=== PATIENT | male | born 1960 | race African-American/Black ===

== ENCOUNTER 2019-12-06 07:18 | Inpatient (IN) | payer OTHER ==
[~2019-12-06] VITALS: Ht 172.7 cm; Wt 86.2 kg
[2019-12-06] MEDS ORDERED: SODIUM CHLORIDE 0.9% 1,000 ML IV ONE (08:17)
[2019-12-06] MEDS ORDERED: SODIUM CHLORIDE 0.9% 1000ML BAG (SEPSIS BOLUS) IV ONE (08:30)
[2019-12-06] MEDS ORDERED: ACETAMINOPHEN 325MG TABLET PO ONE (08:30)
[2019-12-06 09:18] LABS: BASOPHILS % 0.6 % (0.0-2.0); HEMOGLOBIN. 18.2 g/dL (14.0-18.0); LYMPHOCYTES % 12.2 % (20.0-50.0); MEAN CORPUSCULAR HEMOGLOBIN 29.3 pg (28.0-32.0); MEAN CORPUSCULAR VOLUME 85.5 fL (80.0-94.0); MEAN PLATELET VOLUME 8.7 fl (7.4-10.4); MONOCYTES % 3.6 % (2.0-8.0); NEUTROPHILS % 83.6 % (40.0-76.0); PLATELET 248 x1000/uL (130-400); RED BLOOD CELL COUNT 6.19 mill/uL (4.7-6.1); RED CELL DISTRIBUTION WIDTH 13.8 % (11.6-14.6)
[2019-12-06 09:27] LABS: CHLORIDE 98 mEq/L (98-107)
[2019-12-06 09:34] LABS: INR 1.1; PARTIAL THROMBOPLASTIN TIME 34.1 sec (23.4-31.0); PROTHROMBIN TIME 11.7 sec (9.6-11.0)
[2019-12-06] MEDS ORDERED: AZITHROMYCIN 500 MG in DEXT 5% WATER 250 ML IV STA (10:23)
[2019-12-06] MEDS ORDERED: CEFTRIAXONE 1 G PREMIX 50 ML IV ONE (10:30)
[2019-12-06 11:01] LABS: CLARITY URINE CLOUDY (CLEAR); COLOR URINE DARK YELLOW (YELLOW); KETONES URINE 1+ (NEGATIVE); LEUKOCYTE ESTERASE URINE NEGATIVE (NEGATIVE); NITRITE URINE NEGATIVE (NEGATIVE); OCCULT BLOOD URINE 3+ (NEGATIVE); PH URINE 5.5 (4.5-8.0); PROTEIN URINE 4+ (NEGATIVE); SPECIFIC GRAVITY URINE 1.034 (1.005-1.030)
[2019-12-06] MEDS ORDERED: AZITHROMYCIN 500 MG in DEXT 5% WATER 250 ML IV SCH (12:15)
[2019-12-06] MEDS ORDERED: NITROGLYCERIN 0.4MG TABLET SL SL PRN (12:15)
[2019-12-06] MEDS ORDERED: DOCUSATE SODIUM 100MG CAPSULE PO PRN (12:15)
[2019-12-06] MEDS ORDERED: MAGNESIUM/ALUMINUM HYDROXIDE/SIMETHICONE 30ML UDC PO PRN (12:15)
[2019-12-06] MEDS ORDERED: IPRATROPIUM/ALBUTEROL 0.5-3(2.5)MG/3ML NEB ORI PRN (12:15)
[2019-12-06] MEDS ORDERED: ZOLPIDEM TARTRATE 5MG TABLET PO PRN (12:15)
[2019-12-06] MEDS ORDERED: ENOXAPARIN 40MG/0.4ML SYR SUBCUT SCH (12:15)
[2019-12-06] MEDS ORDERED: GUAIFENESIN/DM 600MG/30MG ER TAB 12HR PO SCH (12:15)
[2019-12-06] MEDS ORDERED: ONDANSETRON HCL 4MG/2ML INJ IV PRN (12:15)
[2019-12-06] MEDS ORDERED: CLONIDINE 0.1MG TABLET PO PRN (12:15)
[2019-12-06] MEDS: ENOXAPARIN 40MG/0.4ML SYR SUBCUT SCH (13:42)
[2019-12-06 14:52] LABS: CREATINE KINASE 985 IU/L (39-308)
[2019-12-06 14:53] LABS: CREATINE KINASE MB FRACTION 2.1 ng/mL (0.5-3.6)
[2019-12-06] MEDS: KETOROLAC 15MG/ML VIAL IV PRN (17:14)
[2019-12-06 19:58] LABS: *AMPHETAMINES SCREEN URINE NEGATIVE (NEGATIVE); *BARBITURATES SCREEN URINE NEGATIVE (NEGATIVE); *BENZODIAZEPINES SCREEN URINE NEGATIVE (NEGATIVE); *COCAINE SCREEN URINE NEGATIVE (NEGATIVE); METHADONE URINE SCREEN NEGATIVE (NEGATIVE); OPIATES URINE SCREEN NEGATIVE (NEGATIVE); PHENCYCLIDINE URINE SCREEN NEGATIVE (NEGATIVE)
[2019-12-06 19:59] LABS: CANNABINOID URINE SCREEN NEGATIVE (NEGATIVE)
[2019-12-06 20:55] VITALS: BP 108/72
[2019-12-06] MEDS: FAMOTIDINE 20MG TABLET PO SCH (21:51)
[2019-12-06] MEDS: ASCORBIC ACID 500 MG TABLET PO SCH (21:51)
[2019-12-06] MEDS: GUAIFENESIN/DM 600MG/30MG ER TAB 12HR PO SCH (21:51)
[2019-12-06] MEDS: ACETAMINOPHEN 325MG TABLET PO PRN (21:52)
[2019-12-06] MEDS ORDERED: ACET-2708 PO (22:05)
[2019-12-06 23:49] LABS: CREATINE KINASE 1051 IU/L (39-308)
[2019-12-07] VITALS (8 sets, daily range): BP systolic 100–125; BP diastolic 64–73
[2019-12-07] MEDS: ACETAMINOPHEN 325MG TABLET PO PRN ×3 (04:55→20:44)
[2019-12-07] MEDS: ASCORBIC ACID 500 MG TABLET PO SCH ×2 (08:01→20:21)
[2019-12-07] MEDS: FAMOTIDINE 20MG TABLET PO SCH ×2 (08:01→20:21)
[2019-12-07] MEDS: GUAIFENESIN/DM 600MG/30MG ER TAB 12HR PO SCH ×2 (08:01→20:21)
[2019-12-07] MEDS: ENOXAPARIN 40MG/0.4ML SYR SUBCUT SCH (08:01)
[2019-12-07] MEDS: ZINC SULFATE 220 MG ( 50 ) CAPSULE PO SCH (08:01)
[2019-12-07] MEDS ORDERED: CEFTRIAXONE 1 G PREMIX 50 ML IV SCH ×2 (09:00→11:00)
[2019-12-07] MEDS ORDERED: AZITHROMYCIN 500 MG in DEXT 5% WATER 250 ML IV SCH (11:00)
[2019-12-07] MEDS: CEFTRIAXONE 1 G PREMIX 50 ML IV SCH (11:53)
[2019-12-07] MEDS: GUAIFENESIN 200MG/10ML SUGAR FREE UDC PO PRN ×2 (12:24→16:58)
[2019-12-07] MEDS: AZITHROMYCIN 500 MG in DEXT 5% WATER 250 ML IV SCH (12:24)
[2019-12-07 13:01] LABS: CREATINE KINASE MB FRACTION 1.9 ng/mL (0.5-3.6)
[2019-12-07] MEDS: KETOROLAC 15MG/ML VIAL IV PRN (20:20)
[2019-12-08] VITALS (7 sets, daily range): BP systolic 104–125; BP diastolic 64–83
[2019-12-08] MEDS: GUAIFENESIN/DM 600MG/30MG ER TAB 12HR PO SCH (08:35)
[2019-12-08] MEDS: ASCORBIC ACID 500 MG TABLET PO SCH (08:35)
[2019-12-08] MEDS: ZINC SULFATE 220 MG ( 50 ) CAPSULE PO SCH (08:35)
[2019-12-08] MEDS: ENOXAPARIN 40MG/0.4ML SYR SUBCUT SCH (08:36)
[2019-12-08] MEDS: GUAIFENESIN 200MG/10ML SUGAR FREE UDC PO PRN ×2 (08:44→17:23)
[2019-12-08] MEDS: KETOROLAC 15MG/ML VIAL IV PRN (08:45)
[2019-12-08] MEDS ORDERED: FAMOTIDINE 10MG TABLET PO SCH (10:00)
[2019-12-08] MEDS: CEFTRIAXONE 1 G PREMIX 50 ML IV SCH (11:15)
[2019-12-08] MEDS: AZITHROMYCIN 500 MG in DEXT 5% WATER 250 ML IV SCH (11:40)
[2019-12-08] MEDS: ACETAMINOPHEN 325MG TABLET PO PRN (19:45)
== END 2019-12-08 21:59 | disposition short-term general hospital (02) | DRG 194 ==
LOC: ER 07:18 → 7WST 10:25 → EDBEDREQTM 10:35 → EDBEDREQ 10:35 → ENRESERV 20:06 → 5WST 12-07 22:45
PROVIDERS: ADMIT Internal Medicine; ATTEND Internal Medicine
DX: J18.9 Pneumonia, unspecified organism (principal); E87.1 Hypo-osmolality and hyponatremia; E44.0 Moderate protein-calorie malnutrition; Z20.828 Contact with and (suspected) exposure to other viral communicable diseases; E83.51 Hypocalcemia; Z68.28 Body mass index [BMI] 28.0-28.9, adult; Z79.899 Other long term (current) drug therapy
CPT/HCPCS: 36415; 71045; 80053; 80061; 80305; 81003; 82550; 82553; 83036; 83605; 84145; 84484; 85025; 87635; 93005; 93970; 96365; 99285; J0456; J0696; J1650; J1885; J7030; J7060